=== PATIENT | female | born 1955 ===

== ENCOUNTER → 2017-12-26 | Outpatient (REF) | payer BC | LOC: M LAB REF 13:19 | DX: N39.0 Urinary tract infection, site not specified (principal) | CPT/HCPCS: 87086 ==

== ENCOUNTER → 2018-01-09 | Outpatient (REF) | payer BC | LOC: M LAB REF 12:07 | DX: N39.0 Urinary tract infection, site not specified (principal) ==

== ENCOUNTER → 2023-01-16 | Outpatient (CLI) | payer BC | LOC: M WUC 13:59 | PROVIDERS: ATTEND Family Medicine | DX: R05.9 Cough, unspecified (principal) ==

== ENCOUNTER → 2024-03-05 | Outpatient (CLI) | payer MEDICARE | LOC: M WUC 12:06 | DX: Z01.818 Encounter for other preprocedural examination (principal) ==